=== PATIENT | male | born 1965 | race Caucasian/White ===

== ENCOUNTER 2017-03-09 08:21 | Day surgery (SDC) | payer MEDICARE, OTHER ==
[~2017-03-09] VITALS: Ht 188 cm; Wt 134.0 kg
[~2017-03-09 08:21] MED LIST: ALBU.5I NEB; APIX5TAB PO; BACL20TA TUBE; CARV3.125 PO; FLUT50SP EACH NARE; FURO40TA PO; GLIM2TAB PO; HUMALOG SQ; HYDR50TA15 PO; LACTCAP8 PO; LANTUS2P SQ; LORA10TA PO; MECL25CH CHEW; NYST500000 PO; ROSU40 PO; SCOP1PAT2 T-DERMAL; TRAM-492 PEG; VITA10007 PO; VITA500030 PEG; ZANT150T2 PO; ZOFR4TAB PO
[2017-03-09 08:45] VITALS: BP 143/75; PULSE 71; RESP 18; TEMP 96.9; O2SAT 96
[2017-03-09] MEDS ORDERED: CLAR10CA3 PO (08:56)
[2017-03-09] MEDS ORDERED: ASCO500T PO (08:56)
[2017-03-09] MEDS ORDERED: MECL1TAB42 (08:56)
[2017-03-09] MEDS ORDERED: CHOL5000 PO (08:56)
[2017-03-09] MEDS ORDERED: CRANPOW2 (08:56)
[2017-03-09] MEDS ORDERED: HYDR-3800 (08:56)
[2017-03-09] MEDS ORDERED: SODIUM CHLOR 0.9% 1000 ML INJ 1,000 ML IV SCH (09:00)
--- NOTE | 2017-03-09 10:44 | PD.RAD ---
Post Procedure Progress Note Pre Procedure Diagnosis: (1) Spastic quadriplegia Post Procedure Diagnosis: (1) Spastic quadriplegia Procedure Date: Mar 09, 2017 Supervising Radiologist: Senthil Santana Proceduralist/Assist: Miko Melton, RT(R), Samm Shah RT(R)() Estimated blood loss: 0 ml Anesthesia: Conscious Sedation Plan of Activity Patient to Unit: ROPU Patient Condition: Good See PACS Report for procedural detail/treatment Senthil Santana MD Mar 09, 2017 10:44
[2017-03-09 10:45] VITALS: BP 120/75; PULSE 74; RESP 20; TEMP 98.5; O2SAT 96
[2017-03-09] MEDS ORDERED: IOHEXOL 350 MG/ML 50 ML BTL (for RAD DIAG) G-TUBE ONE (11:15)
--- NOTE | 2017-03-09 11:51 | RADRPT ---
EXAM DATE/TIME: 03/09/2017 10:37 [facility] COMPARISON: CHANGE OF GJ-TUBE CATHETER, September 21, 2016, 11:54. INDICATIONS : Patient with history of an anoxic brain injury in need of exchange of transgastric tube. MEDICAL HISTORY : Hx of NM Anoxic brain injury CAD Afib Colitis Coccyx ulcer HTN Renal disease SURGICAL HISTORY : Hx of GJ tube placement Suprapubic cath Colonoscopy Tracheostomy Cardiac cath Seema Cardiac stent placement ENCOUNTER: Subsequent ACUITY: >1 year PAIN SCORE: 0/10 FLUORO TIME: 1.0 minutes IMAGE SERIES: CONTRAST: 15 cc Omnipaque (iohexol) 350 DEVICE(S): 1.) 22 [place] Transgastric tube PROCEDURE : 1. Fluoroscopically guided gastrojejunostomy tube exchange. 2. Conscious sedation with continuous EKG and oximetry monitoring. The risks, benefits and alternatives to the procedure were explained and verbal and written consent w as obtained. The site was prepped in sterile fashion. Full sterile technique was used, including ca p, mask, sterile gloves and gown and a large sterile sheet. Hand hygiene and 2% chlorhexidine and/or betadine/alcohol prep was utilized per protocol for cutaneous antisepsis. The skin and subcutaneous tissues were infiltrated with local anesthetic solution. With fluoroscopic guidance a guidewire was passed through the previous gastrojejunostomy tube and a f resh tube was placed over the guidewire. The balloon was inflated with appropriate volume of saline. Injection of positive contrast demonstrates good position of the gastric and jejunal lumens of the tube. Conscious sedation was performed with the prescribed dosages and duration as above in the presence of an independent trained radiology nurse to assist in the monitoring of the patient. EKG and oximetry remained stable throughout the procedure. The patient tolerated the procedure well and there were n o complications. The patient was sent to post anesthesia recovery in stable condition. CONCLUSION: Uncomplicated gastrojejunostomy tube exchange as above. Senthil Santana MD on March 09, 2017 at 11:49 Board Certified Radiologist. This report was verified electronically.
== END 2017-03-09 11:15 | disposition home or self-care (01) ==
LOC: HROP 08:21 → HRIP 08:23 → HROP 11:15
PROVIDERS: ATTEND Internal Medicine Gastroenterology
DX: Z43.4 Encounter for attention to other artificial openings of digestive tract (principal); G82.50 Quadriplegia, unspecified; I25.10 Atherosclerotic heart disease of native coronary artery without angina pectoris; I48.91 Unspecified atrial fibrillation; I10 Essential (primary) hypertension; I25.2 Old myocardial infarction; Z95.5 Presence of coronary angioplasty implant and graft
CPT/HCPCS: 49452; C1769; C1874; Q9967

== ENCOUNTER 2017-05-05 12:45 | Inpatient (IN) | payer MEDICARE, OTHER ==
[~2017-05-05] VITALS: Ht 188 cm; Wt 138.0 kg
[~2017-05-05 12:45] MED LIST changes: +ASCO500T PO; +CHOL5000 PO; +CLAR10CA3 PO; +CRANPOW2; +HYDR-3800; -HYDR50TA15 PO; -LORA10TA PO; +MECL1TAB42; -MECL25CH CHEW; -VITA10007 PO; -VITA500030 PEG
[2017-05-05 12:47] VITALS: BP 100/45; PULSE 74; RESP 20; TEMP 98.5; O2SAT 96
--- NOTE | 2017-05-05 12:58 | PD ---
Physical Exam Date Seen by Provider: May 05, 2017 Time Seen by Provider: 12:56 Narrative 52 yo male here for evaluation of PEG tube malfunction. Possibly clogged. Taking antibiotics at this time for congestion. Has had fevers since yesterday. Tube clogged today. Vitals are stable in triage. Awaiting bed placement. Data Data Last Documented VS Vital Signs Date Time Temp Pulse Resp B/P Pulse Ox O2 Delivery O2 Flow Rate FiO2 05/05/17 12:47 98.5 74 20 100/45 96 MDM Medical Record Reviewed: Yes Supervised Visit with [facility]: Golden Luna May 05, 2017 12:58
--- NOTE | 2017-05-05 13:48 | PD ---
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 For the past few months the patient has had a cough. The cough sounds wet but he is unable to brace any sputum. He was previously treated with Cipro however over the past week his cough is worsening. Yesterday he was started on doxycycline by his primary care physician Dr. Delgado. He spiked a fever yesterday as high as 101. Today his temperature was 99.8 at home. The also notes He has had some increased sediment in his urine bag. She did change his suprapubic catheter yesterday. In addition the reports that his GJ tube became clogged this morning. Specifically his G port is clogged but she reports that the J port is still working. She tried unclogging at home with jennifer antonio, warm water, for several hours but it persisted and this prompted evaluation. She has not noticed any new pressure ulcers. He has had slightly thicker stool consistencies which she attributes to him recently having an increasing his diuretic medications. No other complaints. PFSH Past Medical History Autoimmune Disease: No Blood Disorders: No Anxiety: Yes Heart Rhythm Problems: Yes (Hx of AF after stent placement) Cancer: No Cardiac Catheterization: Yes Cardiovascular Problems: Yes (stent) High Cholesterol: Yes Chest Pain: Yes Congestive Heart Failure: No Coronary Artery Disease: Yes Diabetes: Yes Patient Takes Glucophage: No Diminished Hearing: No Endocrine: Yes Gastrointestinal Disorders: Yes (Ulcerative colitis) GERD: Yes Genitourinary: Yes Hypertension: Yes Implanted Vascular Access Dvce: Yes Musculoskeletal: No Neurologic: Yes (ANOXIC BRAIN INJURY POST CODE) Psychiatric: No Reproductive: No Respiratory: Yes (Tracheostomy, REMOVED 12/18) Immunizations Current: Yes Myocardial Infarction: Yes Pneumonia: Yes Renal Failure: Yes Tetanus Vaccination: > 5 Years Influenza Vaccination: Yes Past Surgical History Abdominal Surgery: Yes (G-tube, COLOSTOMY) AICD: No Body Medical Devices: G-TUBE, Cardiac stent Cardiac Surgery: Yes (Heart Cath/Pericardial Window) Cholecystectomy: Yes Coronary Stent: Yes (STENT x 1) Joint Replacement: No Pacemaker: No Thoracic Surgery: Yes (Heart Cath/Pericardial Window) Tonsillectomy: Yes Other Surgery: Yes (gallbladder removed) Social History Alcohol Use: No Tobacco Use: No (1989) Substance Use: No Allergies-Medications (Allergen,Severity, Reaction): Coded Allergies: *MDRO Multi-Drug Resistant Organism (Verified Allergy, Unknown, 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 Reported Meds & Prescriptions Reported Meds & Active Scripts Active Baclofen 20 Mg Tab 20 Mg TUBE QID Reported Meclizine (Meclizine HCl) 25 Mg Tab 25 Mg PO TID PRN Potassium Chloride ER (Potassium Chloride) 20 Meq Tab 20 Meq PO DAILY Cranberry (Cranberry (Vaccinium Macrocarpon)) 1 Powd 1 Cap DAILY Meclizine 25 (Meclizine HCl) 25 Mg Tab TID Claritin (Loratadine) 10 Mg Cap 10 Mg PO DAILY Hydralazine HCl 50 Mg Tablet TID Vitamin D3 (Cholecalciferol) 5,000 Unit Cap 5,000 Units PO DAILY Ascorbic Acid 500 Mg Tab 1,000 Mg PO BID Zantac (Ranitidine HCl) 150 Mg Tab 150 Mg PO BID Scopolamine Patch 72 HR (Scopolamine) 1 Mg Patch 1 Patch T-DERMAL Q72H Probiotic (Lactobacillus Acidophilus) 1 Cap Cap 1 Cap PO TIDAC Albuterol Neb (Albuterol Sulfate) 2.5 Mg/0.5 Ml Neb 2.5 Mg NEB Q6HR NEB PRN Note: The Albuterol Sulfate Inhalation Solution is concentrated and must be diluted. Read complete instructions carefully before using. Fluticasone Nasal [place] 50 Mcg/Act Naspr 50 Mcg EACH NARE BID 50 mcg/spray Tramadol Hydrochloride (Tramadol HCl) 50 Mg Tab 50 Mg PEG PRN PRN Nystatin 500,000 Unit Tab 1,000,000 Units PO Q8H Zofran (Ondansetron HCl) 4 Mg Tab 4 Mg PO Q8HR PRN Crestor (Rosuvastatin Calcium) 40 Mg Tab 40 Mg PO DAILY Humalog Inj (Insulin Human Lispro) 1,000 Unit/10 Ml Vial 5-25 Units SQ ACHS Max dose at bedtime:( )units; sugars < 70,(0)units; sugars 150-199,(5)units; sugars 200-249,(10)units; sugars 250-299,(15)units; sugars 300-349,(20)units; sugars more than 349,(25)units. Lantus Inj (Insulin Glargine) 100 Unit/Ml Inj 74 Units SQ BID Glimepiride 2 Mg Tab 2 Mg PO DAILY Take with breakfast or first main meal Coreg (Carvedilol) 3.125 Mg Tab 3.125 Mg PO BID Furosemide 40 Mg Tab 60 Mg PO DAILY Eliquis (Apixaban) 5 Mg Tab 2.5 Mg PO BID Review of Systems Except as stated in HPI: all other systems reviewed are Neg Physical Exam Narrative GENERAL: Chronically ill-appearing male in no acute distress. SKIN: Warm and dry. HEAD: Atraumatic. Normocephalic. EYES: Pupils equal and round. No scleral icterus. No injection or drainage. ENT: No nasal bleeding or discharge. Mucous membranes pink and moist. NECK: Trachea midline. No JVD. CARDIOVASCULAR: Regular rate and rhythm. No murmur appreciated. RESPIRATORY: No accessory muscle use. Clear to auscultation. Breath sounds equal bilaterally. Difficult to auscultate secondary to body habitus. GASTROINTESTINAL: Abdomen soft, colostomy bag noted in the left lower quadrant, GJ tube noted in the upper portion of the abdomen. Suprapubic catheter in place. MUSCULOSKELETAL: Contracture of the extremities noted. 1+ lower extremity pitting edema bilaterally. NEUROLOGICAL: Contractures in the extremities. Baseline mental status per . Data Data Last Documented VS Vital Signs Date Time Temp Pulse Resp B/P Pulse Ox O2 Delivery O2 Flow Rate FiO2 05/05/17 13:18 74 20 95 Room Air 05/05/17 12:47 98.5 100/45 Orders Invasive Rad Dept Consult (05/05/17 ) Vascular Access Team Consult/P PRN (05/05/17 13:21) Vascular Poc Ultrasound (05/05/17 ) Complete Blood Count With Diff (05/05/17 13:24) Comprehensive Metabolic Panel (05/05/17 13:24) Lactic Acid Sepsis Protocol (05/05/17 13:24) Urinalysis - C+S If Indicated (05/05/17 13:24) Influenzae A/B Antigen (05/05/17 13:24) Blood Culture (05/05/17 13:24) Chest, Single Ap (05/05/17 13:24) Ecg Monitoring (05/05/17 13:24) Iv Access Insert/Monitor (05/05/17 13:24) Oximetry (05/05/17 13:24) Oxygen Administration (05/05/17 13:24) Sodium Chlor 0.9% 1000 Ml Inj (Ns 1000 M (05/05/17 14:19) Cefepime Inj (Maxipime Inj) (05/05/17 14:30) Azithromycin Inj (Zithromax Inj) (05/05/17 14:30) Urine Culture (05/05/17 14:06) Admit Order (Ed Use Only) (05/05/17 15:25) Labs Laboratory Tests Test 05/05/17 05/05/17 05/05/17 14:00 14:05 14:06 White Blood Count 9.5 TH/MM3 Red Blood Count 4.54 MIL/MM3 Hemoglobin 13.0 GM/DL Hematocrit 39.0 % Mean Corpuscular Volume 85.9 FL Mean Corpuscular Hemoglobin 28.7 PG Mean Corpuscular Hemoglobin 33.4 % Concent Red Cell Distribution Width 16.0 % Platelet Count 244 TH/MM3 Mean Platelet Volume 8.4 FL Neutrophils (%) (Auto) 70.4 % Lymphocytes (%) (Auto) 16.8 % Monocytes (%) (Auto) 11.5 % Eosinophils (%) (Auto) 0.7 % Basophils (%) (Auto) 0.6 % Neutrophils # (Auto) 6.7 TH/MM3 Lymphocytes # (Auto) 1.6 TH/MM3 Monocytes # (Auto) 1.1 TH/MM3 Eosinophils # (Auto) 0.1 TH/MM3 Basophils # (Auto) 0.1 TH/MM3 CBC Comment DIFF FINAL Differential Comment Sodium Level 136 MEQ/L Potassium Level 3.2 MEQ/L Chloride Level 96 MEQ/L Carbon Dioxide Level 34.7 MEQ/L Anion Gap 5 MEQ/L Blood Urea Nitrogen 21 MG/DL Creatinine 0.78 MG/DL Estimat Glomerular Filtration 104 ML/MIN Rate Random Glucose 162 MG/DL Calcium Level 9.1 MG/DL Total Bilirubin 0.7 MG/DL Aspartate Amino Transf 20 U/L (AST/SGOT) Alanine Aminotransferase 19 U/L (ALT/SGPT) Alkaline Phosphatase 70 U/L Total Protein 7.0 GM/DL Albumin 2.8 GM/DL Lactic Acid Level 1.9 mmol/L Urine Color YELLOW Urine Turbidity CLOUDY Urine pH 6.0 Urine Specific [place] 1.015 Urine Protein 30 mg/dL Urine Glucose (UA) NEG mg/dL Urine Ketones NEG mg/dL Urine Occult Blood SMALL Urine Nitrite NEG Urine Bilirubin NEG Urine Urobilinogen LESS THAN 2.0 MG/DL Urine Leukocyte Esterase LARGE Urine RBC 21 /hpf Urine WBC /hpf Urine WBC Clumps MANY Urine Bacteria MANY /hpf Urine Mucus FEW /lpf Microscopic Urinalysis Comment CATH-CULTURE IND MDM Medical Decision Making Medical Screen Exam Complete: Yes Emergency Medical Condition: Yes Medical Record Reviewed: Yes Differential Diagnosis Pneumonia, UTI, PEG tube infection, sepsis Narrative Course This is a 52-year-old male who has been suffering from a cough for the past few months, worse over the past week with fever 101 yesterday. He was started on doxycycline yesterday by his primary care physician. In addition the jeep part of his GJ tube has been clogged since this morning. Dr. Romero discussed with Dr. Schaefer radiologist to reports that they would be able to exchange the GJ tube in 2 days on Sunday, May 07 and in the meantime the J port can be used. History of fever in this patient is concerning. Plan is for basic lab work, chest x-ray, urinalysis, blood cultures. Chest x-ray reveals bibasilar infiltrate or atelectasis. Given the history of fever and cough, the patient will be treated for presumptive pneumonia with cefepime and azithromycin. His urinalysis also reveals innumerable WBCs bacteria, so this will be sent for culture. Diagnosis Primary Impression: PNA (pneumonia) Qualified Code: J18.9 - Pneumonia of both lower lobes due to infectious organism Additional Impressions: UTI (urinary tract infection) Qualified Code: T83.511A - Urinary tract infection associated with indwelling urethral catheter, initial encounter Feeding tube blocked Qualified Code: T85.598A - Feeding tube blocked, initial encounter Admitting Information Admitting Physician Requests: Admit Jonathon Cook May 05, 2017 13:48
--- NOTE | 2017-05-05 14:08 | RADRPT ---
EXAM DATE/TIME: 05/05/2017 13:33 [facility] COMPARISON: CHEST SINGLE AP, January 10, 2015, 8:47. INDICATIONS : Fever and Congestion MEDICAL HISTORY : Hypertension. History of [place], Anoxic brain injury, CAD, A-fib, Colitis, Coccyx ulcer, Renal dise ase SURGICAL HISTORY : Cholecystectomy. History of GJ tube placement, Suprapubic cath, Colonoscopy, Tracheostomy, Cardiac st ent placement ENCOUNTER: Subsequent ACUITY: 1 day PAIN SCORE: Non-responsive. LOCATION: Bilateral chest FINDINGS: There is a poor inspiratory result. The heart is enlarged. Bibasilar atelectasis and/or infiltrates are noted. CONCLUSION: 1. Bibasilar atelectasis and/or infiltrates. 2. Cardiomegaly. 3. Poor inspiratory result. Fernando Greer MD on May 05, 2017 at 14:03 Board Certified Radiologist. This report was verified electronically.
[2017-05-05 14:18] LABS: AUTOMATED NEUTROPHIL # 6.7 TH/MM3 (1.8-7.7); BASOPHIL # 0.1 TH/MM3 (0-0.2); BASOPHIL % 0.6 % (0.0-2.0); EOSINOPHIL # 0.1 TH/MM3 (0-0.4); EOSINOPHIL % 0.7 % (0.0-4.0); HEMO FLAGS DIFF FINAL; LYMPH % 16.8 % (9.0-44.0); LYMPHOCYTE # 1.6 TH/MM3 (1.0-4.8); MEAN CELL VOLUME 85.9 FL (80.0-100.0); MEAN CORPUSCULAR HEMOGLOBIN 28.7 PG (27.0-34.0); MEAN CORPUSCULAR HGB CONC 33.4 % (32.0-36.0); MONO % 11.5 % (0.0-8.0); NEUT % 70.4 % (16.0-70.0); PLATELET COUNT 244 TH/MM3 (150-450); RED BLOOD COUNT 4.54 MIL/MM3 (4.50-5.90); WHITE BLOOD COUNT 9.5 TH/MM3 (4.0-11.0)
[2017-05-05] MEDS ORDERED: SODIUM CHLOR 0.9% 1000 ML INJ 1,000 ML IV SCH (14:19)
[2017-05-05] MEDS ORDERED: AZITHROMYCIN INJ 500 MG in SODIUM CHLOR 0.9% 250 ML INJ 250 ML IV ONE (14:30)
[2017-05-05] MEDS ORDERED: CEFEPIME INJ 2,000 MG in SODIUM CHLORIDE 0.9% INJ 100 ML IV ONE (14:30)
[2017-05-05] MEDS ORDERED: MECL-62 PO (14:37)
[2017-05-05] MEDS ORDERED: POTA-163 PO (14:37)
[2017-05-05 14:40] LABS: ALT (GPT) 19 U/L (12-78)
[2017-05-05 14:41] LABS: BACTERIA, URINE MANY /hpf; BLOOD, URINE SMALL (NEG); COMMENT (UR) CATH-CULTURE IND; CULTURE IF INDICATED CATH CULTURE IND; GLUCOSE,URINE NEG (NEG); KETONE, URINE NEG (NEG); MUCUS URINE FEW /lpf (OCC); NITRITE,URINE NEG (NEG); URINE COLOR YELLOW (YELLW/STRAW)
[2017-05-05 14:44] LABS: ALKALINE PHOSPHATASE 70 U/L (45-117); ANION GAP 5 MEQ/L (5-15); AST (GOT) 20 U/L (15-37); BICARBONATE 34.7 MEQ/L (21.0-32.0); BLOOD UREA NITROGEN 21 MG/DL (7-18); CHLORIDE 96 MEQ/L (98-107); GLOMERULAR FILTRATION RATE 104 ML/MIN (>89); POTASSIUM 3.2 MEQ/L (3.5-5.1); SODIUM (NA) 136 MEQ/L (136-145); TOTAL BILIRUBIN ADULT 0.7 MG/DL (0.2-1.0)
[2017-05-05] MEDS ORDERED: ACETAMINOPHEN 325 MG TAB PO PRN (15:30)
[2017-05-05] MEDS ORDERED: SODIUM CHLORIDE 0.9% FLUSH 10 ML FLUSH IV FLUSH PRN (15:30)
[2017-05-05] MEDS ORDERED: ONDANSETRON HCL 4 MG/2 ML VIAL IVP PRN (15:30)
[2017-05-05] MEDS ORDERED: NALOXONE HCL 0.4 MG/ML AMP IV PRN (15:30)
[2017-05-05] MEDS: HEPARIN SODIUM - SQ 10,000 UNITS/ML VIAL SQ SCH (16:10)
[2017-05-05 16:29] VITALS: BP 143/61; PULSE 81; RESP 16; O2SAT 96
[2017-05-05 16:38] VITALS: RESP 16; O2SAT 96
[2017-05-05] MEDS ORDERED: MECLIZINE HCL 25 MG TAB PO PRN (17:30)
[2017-05-05 18:05] VITALS: BP 118/68; PULSE 80; RESP 18; TEMP 98.8; O2SAT 95
[2017-05-05] MEDS ORDERED: POTASSIUM CHLORIDE 20 MEQ PWD PACKET PO ONE (18:15)
[2017-05-05] MEDS ORDERED: DEXTROSE 50% IN WATER 50 ML VIAL(D50) IV PRN (18:30)
[2017-05-05] MEDS ORDERED: GLUCAGON 1 MG/ML VIAL OTHER PRN (18:30)
[2017-05-05] MEDS: RESP: ALBUTEROL 2.5 MG/IPRATROPIUM 0.5 MG NEB (SCH) NEB ×2 (19:42→23:57)
[2017-05-05 19:45] VITALS: O2SAT 94
[2017-05-05 20:00] VITALS: BP 133/65; PULSE 75; RESP 20; TEMP 97.4; O2SAT 94
[2017-05-05] MEDS: BACLOFEN 20 MG TAB J-TUBE SCH ×2 (21:00→22:29)
[2017-05-05] MEDS: APIXABAN 2.5 MG TABLET PO SCH (22:29)
[2017-05-05] MEDS: FAMOTIDINE 20 MG TAB PO SCH (22:30)
[2017-05-05] MEDS: CARVEDILOL 3.125 MG TAB PO SCH (22:30)
[2017-05-05] MEDS: SCOPOLAMINE 1.5 MG PATCH T-DERMAL SCH (22:31)
[2017-05-05] MEDS: SODIUM CHLORIDE 0.9% FLUSH 10 ML FLUSH IV FLUSH SCH (22:32)
[2017-05-05] MEDS: CEFEPIME INJ 1,000 MG in SODIUM CHLORIDE 0.9% INJ 100 ML IV SCH (22:32)
[2017-05-05] MEDS: INSULIN ASPART SUPPLEMENTAL SCALE SQ SCH (22:47)
[2017-05-06] VITALS (10 sets, daily range): BP systolic 93–143; BP diastolic 51–88; PULSE 65–99; RESP 18–21; TEMP 96.3–99.2; O2SAT 91–100
[2017-05-06] MEDS: HEPARIN SODIUM - SQ 10,000 UNITS/ML VIAL SQ SCH ×3 (04:00→23:00)
[2017-05-06] MEDS: RESP: ALBUTEROL 2.5 MG/IPRATROPIUM 0.5 MG NEB (SCH) NEB ×5 (04:30→20:02)
[2017-05-06] MEDS: CEFEPIME INJ 1,000 MG in SODIUM CHLORIDE 0.9% INJ 100 ML IV SCH ×3 (05:14→21:47)
[2017-05-06] MEDS: INSULIN ASPART SUPPLEMENTAL SCALE SQ SCH ×4 (05:19→22:08)
[2017-05-06 06:49] LABS: AUTOMATED NEUTROPHIL # 5.2 TH/MM3 (1.8-7.7); BASOPHIL % 0.6 % (0.0-2.0); EOSINOPHIL # 0.2 TH/MM3 (0-0.4); EOSINOPHIL % 2.4 % (0.0-4.0); HEMATOCRIT 37.2 % (39.0-51.0); HEMO FLAGS DIFF FINAL; LYMPH % 21.6 % (9.0-44.0); LYMPHOCYTE # 1.7 TH/MM3 (1.0-4.8); MEAN CELL VOLUME 86.6 FL (80.0-100.0); MEAN CORPUSCULAR HEMOGLOBIN 28.6 PG (27.0-34.0); MEAN CORPUSCULAR HGB CONC 33.1 % (32.0-36.0); MONO % 11.1 % (0.0-8.0); NEUT % 64.3 % (16.0-70.0); PLATELET COUNT 208 TH/MM3 (150-450); RED CELL DISTRIBUTION WIDTH 16.1 % (11.6-17.2); WHITE BLOOD COUNT 8.1 TH/MM3 (4.0-11.0)
[2017-05-06 07:05] LABS: BICARBONATE 29.2 MEQ/L (21.0-32.0); POTASSIUM 3.1 MEQ/L (3.5-5.1)
[2017-05-06] MEDS: CARVEDILOL 3.125 MG TAB PO SCH ×2 (07:31→21:00)
[2017-05-06] MEDS: FAMOTIDINE 20 MG TAB PO SCH ×2 (07:31→21:48)
[2017-05-06] MEDS: APIXABAN 2.5 MG TABLET PO SCH ×2 (07:31→16:27)
[2017-05-06] MEDS: FUROSEMIDE 20 MG TAB PO SCH (07:31)
[2017-05-06] MEDS: POTASSIUM CHLORIDE 20 MEQ CONTROLLED RELEASE TAB PO SCH (07:32)
[2017-05-06] MEDS: GLIMEPIRIDE 2 MG TAB PO SCH (07:32)
[2017-05-06] MEDS: BACLOFEN 20 MG TAB J-TUBE SCH ×4 (07:32→21:48)
[2017-05-06] MEDS: SODIUM CHLORIDE 0.9% FLUSH 10 ML FLUSH IV FLUSH SCH ×2 (07:32→21:48)
[2017-05-06] MEDS: LORATADINE 10 MG TAB PO SCH (07:32)
[2017-05-06] MEDS: AZITHROMYCIN INJ 500 MG in SODIUM CHLOR 0.9% 250 ML INJ 250 ML IV SCH (13:31)
[2017-05-06] MEDS ORDERED: POTASSIUM CHLORIDE 20 MEQ PWD PACKET PO ONE (14:00)
--- NOTE | 2017-05-06 16:14 | HHI.PR ---
Subjective Subjective Remarks Nonverbal in room with him No acute shortness of breath noted (Fay Haddad) Review of Systems Constitutional Constitutional: Weakness Constitutional Remarks Unable to assess nonverbal (Fay Haddad) Vitals/Results Intake & Output 05/05/17 05/05/17 05/06/17 15:00 23:00 07:00 Output Total 300 ml 300 ml Balance -300 ml -300 ml Output Urine Total 300 ml 300 ml Vital Signs Vital Signs Date Time Temp Pulse Resp B/P Pulse Ox O2 Delivery O2 Flow Rate FiO2 05/06/17 12:35 96.8 82 18 111/63 96 05/06/17 08:37 97.6 88 18 130/75 92 05/06/17 08:08 92 21 05/06/17 04:00 96.9 80 20 125/59 98 05/06/17 00:00 99.2 99 21 102/60 91 05/05/17 20:00 97.4 75 20 133/65 94 05/05/17 19:45 94 05/05/17 18:05 98.8 80 18 118/68 95 05/05/17 16:38 16 96 Room Air 05/05/17 16:29 81 16 143/61 96 Room Air (Fay Haddad) CBC/BMP: 05/06/17 0553 05/06/17 0553 Lab Results Laboratory Tests Test 05/06/17 05/06/17 05:00 05:53 Nasal Screen MRSA (PCR) MRSA DETECTED White Blood Count 8.1 TH/MM3 Red Blood Count 4.30 MIL/MM3 Hemoglobin 12.3 GM/DL Hematocrit 37.2 % Mean Corpuscular Volume 86.6 FL Mean Corpuscular Hemoglobin 28.6 PG Mean Corpuscular Hemoglobin 33.1 % Concent Red Cell Distribution Width 16.1 % Platelet Count 208 TH/MM3 Mean Platelet Volume 8.6 FL Neutrophils (%) (Auto) 64.3 % Lymphocytes (%) (Auto) 21.6 % Monocytes (%) (Auto) 11.1 % Eosinophils (%) (Auto) 2.4 % Basophils (%) (Auto) 0.6 % Neutrophils # (Auto) 5.2 TH/MM3 Lymphocytes # (Auto) 1.7 TH/MM3 Monocytes # (Auto) 0.9 TH/MM3 Eosinophils # (Auto) 0.2 TH/MM3 Basophils # (Auto) 0.0 TH/MM3 CBC Comment DIFF FINAL Differential Comment Sodium Level 139 MEQ/L Potassium Level 3.1 MEQ/L Chloride Level 100 MEQ/L Carbon Dioxide Level 29.2 MEQ/L Anion Gap 10 MEQ/L Blood Urea Nitrogen 19 MG/DL Creatinine 0.67 MG/DL Estimat Glomerular Filtration 124 ML/MIN Rate Random Glucose 195 MG/DL Calcium Level 8.5 MG/DL Imaging Remarks Last Impressions Chest X-Ray 05/05/17 1324 Signed Impressions: Service Date/Time: Friday, May 05, 2017 13:33 - CONCLUSION: 1. Bibasilar atelectasis and/or infiltrates. 2. Cardiomegaly. 3. Poor inspiratory result. Fernando Greer MD Current Medications Administered Medications Medications (Trade) Dose Ordered Sig/Oz Route PRN Reason Start Time Stop Time Status Last Admin Dose Admin Sodium Chloride (NS Flush) 2 ml BID IV FLUSH 05/05/17 21:00 05/06/17 07:32 Heparin Sodium (Porcine) 5000 units 5,000 units Q12H SQ 05/05/17 16:00 05/05/17 16:10 Cefepime HCl 1000 mg/Sodium Chloride 100 ml @ 200 mls/hr Q8H IV 05/05/17 22:00 05/06/17 12:49 Azithromycin/ Sodium Chloride (Zithromax Inj/ NS 250 ml Inj) 250 ml @ 250 mls/hr Q24H IV 05/06/17 15:00 05/06/17 13:31 Apixaban (Eliquis) 2.5 mg BID PO 05/05/17 21:00 05/06/17 07:31 Baclofen (Lioresal) 20 mg QID J-TUBE 05/05/17 18:00 05/06/17 12:49 Carvedilol (Coreg) 3.125 mg BID PO 05/05/17 21:00 05/06/17 07:31 Furosemide (Lasix) 60 mg DAILY PO 05/06/17 09:00 05/06/17 07:31 Glimepiride (Amaryl) 2 mg DAILY PO 05/06/17 09:00 05/06/17 07:32 Loratadine (Claritin) 10 mg DAILY PO 05/06/17 09:00 05/06/17 07:32 Potassium Chloride (KCl) 20 meq DAILY PO 05/06/17 09:00 05/06/17 07:32 Scopolamine (Transderm-Scop 1.5 Mg Patch.72 Hr) 1 patch Q72H T-DERMAL 05/05/17 20:00 05/05/17 22:31 Famotidine (Pepcid) 20 mg BID PO 05/05/17 21:00 05/06/17 07:31 (Fay Haddad) Physical Exam General General Appearance: Obese (Fay Haddad) Ears & Nose Ears & Nose Exam: Nasal Mucosa [place] (pale) (Fay Haddad) Throat Throat Exam: Oral Mucosa [place] & Moist (Fay Haddad) Neck Neck Exam: Trachea Midline (Fay Haddad) Pulmonary Resp Exam: Rhonchi (occasional), Decreased Bases, Diminished Breath Sounds ( Fay Haddad) Cardiology CV Exam: Regular CV Remarks Murmur (Fay Haddad) Gastrointestinal/Abdomen GI Exam: Soft, Bowel Sounds Present GI Remarks JG tube, J is the only function and port (Fay Haddad) Genitourinary Remarks Black catheter (Fay Haddad) Musculoskeletal MS Exam: Atrophy, Unable to Ambulate (bed ridden) MS Remarks Contractures hands (Fay Haddad) Integumentary Skin Exam: Warm, Dry, Intact Skin Remarks Old healed sacral wound (Fay Haddad) Neurologic Neuro Remarks Opens eyes to voice, nonverbal, occasional grimace to painful stimuli (Fay Haddad) Assessment/Plan Assessment/Plan Vital signs normal trends today Labs reviewed hypokalemia, gram-negative bacteria in urine, anemia stable at 12.3 Bilateral pneumonia, duo nebs, oxygen, antibiotic therapy, specialty mattress, turn, secretion control, labs as warranted WBC count normal, no fever today, hydration Hypokalemia, patient on maintenance daily dose, 40 mEq given extra today, labs in the morning UTI, probably acute on chronic with chronic Black catheter, changed out before night before admission IV antibiotics History of traumatic brain injury, patient does open eyes to voice, grimaces and makes grunting sounds to painful stimuli, specialty mattress for history of sacral wound and 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 Nothing by mouth at midnight Discussed with Discussed with Dr. ordoñez, seen on her behalf Discussed with nurse (Fay Haddad) Assessment/Plan patient seen and examined agree with above assessment and plan MRSA nasal screen +, will treat with Mupirocin ointment for 5 days monitor urine culture continue i/v antibiotics discussed with patient's at bedside and nursing staff discussed with Fay SOFIA (Yennifer Ordoñez MD) Fay Haddad May 06, 2017 16:14 Yennifer Ordoñez MD May 06, 2017 16:54
[2017-05-06] MEDS: ONDANSETRON ODT 4 MG TAB PO PRN ×2 (16:57→23:59)
[2017-05-06] MEDS: MUPIROCIN 2% OINT 1 APPLIC/GM SYR EACH NARE SCH (21:48)
[2017-05-06] MEDS: DEXT 5%-NACL 0.9% 1000 ML INJ 1,000 ML IV SCH (23:59)
[2017-05-07] VITALS (7 sets, daily range): BP systolic 94–120; BP diastolic 46–68; PULSE 68–82; RESP 17–20; TEMP 97.7–98.5; O2SAT 92–100
[2017-05-07] MEDS: RESP: ALBUTEROL 2.5 MG/IPRATROPIUM 0.5 MG NEB (SCH) NEB ×7 (00:30→23:14)
[2017-05-07] MEDS: CEFEPIME INJ 1,000 MG in SODIUM CHLORIDE 0.9% INJ 100 ML IV SCH ×3 (05:24→23:09)
[2017-05-07] MEDS: INSULIN ASPART SUPPLEMENTAL SCALE SQ SCH ×4 (05:43→23:15)
[2017-05-07 07:31] LABS: BICARBONATE 32.5 MEQ/L (21.0-32.0); POTASSIUM 3.2 MEQ/L (3.5-5.1)
--- NOTE | 2017-05-07 08:10 | MH ---
cc: NABILA WHITE MD DATE OF ADMISSION: 05/05/2017 DATE OF 1965 CHIEF COMPLAINT Fever, cough. Travel in the last 30 days none. HISTORY OF PRESENT ILLNESS This is an unfortunate 52-year-old white male who had an acute anoxic brain injury in 2011. The patient currently is being cared for per his at home. He has a G-J tube in place. The G aspect of the tube is not functioning, The J is currently still functioning. According to the record and the , she has noted cough for the past few weeks. The patient was initially treated with Cipro then placed on doxycycline, but the cough has continued. The patient did reach a high fever yesterday of 101. The states that the cough sounds wet, but he is unable to cough up any sputum. The patient's eyes are open. He does appear to be awake. It is questionable how much he understands, but he does make noises and respond to painful stimuli. To 's knowledge, the patient has had no chest pain. No other shortness of breath. He has been treated for a UTI. He has a chronic suprapubic catheter which was changed last night per her. He is followed routinely by his physicians, PCP and neurology as warranted. He has a feeding tube. He has the J-tube which usually has Glucerna at 60 mL an hour. He has multiple comorbidities. This is the second time the patient has had a pneumonia bout in five years since his brain injury. PAST MEDICAL HISTORY 1. History of anxiety 2. History of atrial fibrillation after stent placement 3. OR with cardiac stents 4. Ulcerative colitis 5. Coronary artery disease, 6. Hyperlipidemia, 7. Obesity, morbid 8. His anoxic brain injury with post a cardiac arrest. 9. Tracheostomy that was removed and 12/18. 10. Renal failure 11. Pneumonia, one other bout in five years. 12. MRSA to a wound on his buttock in 2012 which is healed. VRE to a sacral wound in 2012 which is now healed. PAST SURGICAL HISTORY 1. G tube 2. Colostomy 3. J-tube 4. Cardiac stent per cardiac cath with cardiac window. 5. Cholecystectomy ALLERGIES MDRO ULTIRESISTANT DRUGS SOCIAL HISTORY The patient currently is , lives at home with his who is his chief groundskeeper. 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 Tobacco abuse - quit in 1989. No alcohol. No illicit drug use. REVIEW OF SYSTEMS Unable to obtain any information from the patient. is his groundskeeper and gives all of his information. She is very attentive to him. PHYSICAL EXAMINATION VITAL SIGNS: Temperature is 98.8 tympanic, pulse of 80, respirations 18, blood pressure 118/68, has been as high as 143/61 and has been as low as 100/45. O2 sat 95 currently on room air. GENERAL: Morbidly obese white male looks to be stated age. He is currently in a [place] chair and has been placed in a bed. He does have contractures. Eyes are open. He does respond with some groaning and grunting to painful stimuli and possible some verbal communication from his . SKIN: Warm and dry. He has a healed sacral ulcer. HEENT: Normocephalic. Mucous membranes are moist. NECK: Thick, short but supple. CARDIOVASCULAR: S1-S2, rate is controlled. He has no pedal edema. EXTREMITIES: Warm. RESPIRATORY: Low volumes. Breath sounds are diminished bilateral, especially in both bases, but no active wheezing. ABDOMEN: Soft. Colostomy bag in the left lower quadrant. G-J tube is noted in the upper portion of his abdomen, suprapubic catheter in place. MUSCULOSKELETAL: Contractures noted bilateral all four extremities. NEUROLOGIC: The patient does grunt or groan to painful stimuli, but does not speak and does not follow general commands. PSYCHIATRIC: Mood appropriate. LABORATORY DATA WBC count 9.5, RBC 4.54, hemoglobin 13, hematocrit 39, platelet count 244, neutrophil count 70.4, lymphocyte count 11.5. Chemistry - sodium 136, potassium 3.2, chloride 96, carbon dioxide 34.7, BUN 21, creatinine 0.78, lactic acid 1.9, random glucose 162, albumin 2.8. Urine is yellow, cloudy, pH is 6. Specific gravity 1.015. Protein is 30, negative on glucose, ketones, nitrites, bilirubin is large amount of leukocyte esterase. Urobilinogen less than two, small amount of occult blood. Culture is indicated and pending along with blood cultures. He is negative on his influenza A and B. IMAGING STUDIES Chest x-ray - bibasilar atelectasis and/or infiltrates, cardiomegaly and poor respiratory effort. ASSESSMENT/PLAN 1. Pneumonia bilateral, community acquired 2. Diabetes type 2 3. G-J tube with malfunction of the G. 4. Pleural effusion right side 5. Anoxic brain injury with anoxic encephalopathy, communication impairment 6. History of spastic quadriplegia 7. History of cardiac arrest 8. Acute kidney injury with mild dehydration Our plan is to admit. We will monitor him with labs, O2 per nasal cannula if needed, Duo-nebs q 4. He has currently been placed on azithromycin and cefepime given in the emergency room and we will continue. He is inpatient certification. Heparin subcu for DVT prophylaxis was initiated but patient's meds have been reconciled and he is currently now on Eliquis. The patient will be given his Lasix, Amaryl, Claritin, KCl, Eliquis, Coreg, KCl powder, Antivert through the J tube for now. IR will replace the tube on Sunday so he will have functioning G and J. We will start him on Glucerna 1.5 at 60 mL an hour. We will give him 160 mL of water every two hours. The patient was usually on 240 every four, but we are going to increase water due to some mild acute kidney injury and dehydration. Cardiomegaly - medication and medical management. Code status was discussed in detail with the , charge nurse present. She states she does want full aggressive care to treat his medical dilemmas, but if his heart stops or he stops breathing, she does not want him resuscitated. He will be DNR, DNI but full aggressive care otherwise. She understands that if the patient has any special procedures or surgery in the future, he is full code, full aggressive care for that period of time but other than that DNR/DNI. We will follow. Dictated by KIMBERLYN Palma MD PAULETTE Katz/ /6:09 PM /8:06 AM
[2017-05-07] MEDS: FAMOTIDINE 20 MG TAB PO SCH ×2 (09:00→23:12)
[2017-05-07] MEDS: APIXABAN 2.5 MG TABLET PO SCH ×2 (09:00→23:12)
[2017-05-07] MEDS: BACLOFEN 20 MG TAB J-TUBE SCH ×4 (09:00→23:12)
[2017-05-07] MEDS: CARVEDILOL 3.125 MG TAB PO SCH ×2 (09:00→23:12)
[2017-05-07] MEDS: POTASSIUM CHLORIDE 20 MEQ CONTROLLED RELEASE TAB PO SCH (09:00)
[2017-05-07] MEDS: MUPIROCIN 2% OINT 1 APPLIC/GM SYR EACH NARE SCH ×2 (09:00→23:11)
[2017-05-07] MEDS: SODIUM CHLORIDE 0.9% FLUSH 10 ML FLUSH IV FLUSH SCH ×2 (09:00→23:12)
--- NOTE | 2017-05-07 09:12 | HHI.PR ---
Subjective Subjective Remarks Nonverbal History of anoxic brain injury Unable to obtain ROS Review of Systems Constitutional Constitutional Remarks Unable to obtain ROS Vitals/Results Intake & Output 05/06/17 05/06/17 05/07/17 14:59 22:59 06:59 Intake Total 0 ml 1020 ml Output Total 800 ml 450 ml 350 ml Balance -800 ml -450 ml 670 ml Intake Oral 0 ml 0 ml IV Total 340 ml Tube Feeding 360 ml Other 320 ml Output Urine Total 800 ml 450 ml 350 ml # Bowel Movements 0 Vital Signs Vital Signs Date Time Temp Pulse Resp B/P Pulse Ox O2 Delivery O2 Flow Rate FiO2 05/07/17 08:42 98.4 82 19 120/59 94 05/07/17 08:06 92 21 05/07/17 04:30 98.2 68 19 106/51 99 05/07/17 00:31 72 94/46 05/06/17 23:51 98.1 65 19 143/87 94 05/06/17 21:45 73 97/51 05/06/17 20:03 94 21 05/06/17 20:00 98.9 72 19 97/67 94 05/06/17 16:00 97.2 72 18 93/55 100 94/54 113/66 05/06/17 12:35 96.8 82 18 111/63 96 CBC/BMP: 05/06/17 0553 05/07/17 0600 Lab Results Laboratory Tests Test 05/07/17 06:00 Sodium Level 140 MEQ/L Potassium Level 3.2 MEQ/L Chloride Level 101 MEQ/L Carbon Dioxide Level 32.5 MEQ/L Anion Gap 7 MEQ/L Blood Urea Nitrogen 14 MG/DL Creatinine 0.55 MG/DL Estimat Glomerular Filtration 155 ML/MIN Rate Random Glucose 173 MG/DL Calcium Level 8.7 MG/DL Physical Exam General General Appearance: Well Developed, No Acute Distress, Obese Ears & Nose Ears & Nose Exam: Nasal Mucosa [place] Throat Throat Exam: Oral Mucosa [place] & Moist Neck Neck Exam: Trachea Midline Pulmonary Resp Exam: Decreased Bases, Diminished Breath Sounds, Poor Inspiratory Effort Cardiology CV Exam: Regular Gastrointestinal/Abdomen GI Exam: Soft, Non-Tender, Bowel Sounds Present, Non-Distended GI Remarks Ostomy in place Suprapubic catheter GJ tube Genitourinary Remarks Suprapubic catheter Musculoskeletal MS Exam: Atrophy, Spasticity, Unable to Ambulate Integumentary Skin Exam: Warm, Dry, Intact Neurologic Neuro Remarks Anoxic brain injury, nonverbal, not following commands VTE Prophylaxis VTE Remarks Eliquis Assessment/Plan Problem List: (1) Malfunction of gastrostomy tube (2) PNA (pneumonia) (3) Diabetes 1.5, managed as type 2 (4) UTI (urinary tract infection) (5) CAD (coronary artery disease) (6) Spastic quadriplegia (7) Impaired cognition (8) Anoxic encephalopathy (9) H/O cardiac arrest (10) HX [place] Assessment/Plan Continue with antibiotics for pneumonia Duo nebs as needed Follow cultures Urine culture positive for GNR and group D enterococcus Has chronic suprapubic catheter, was changed 3 days ago Multifunctional GJ tube Continue nothing by mouth IV fluids Going to IR today for GJ tube replacement Dietary consult for tube feeding Continue with Accu-Cheks before meals and at bedtime with insulin therapy Consult wound care nurse for pressure ulcer management MRSA nasal screen + continue with Mupirocin ointment for 5 days Continue with home medications Case management for discharge planning, hopefully home in 1-2 days DNR status Replace K Labs in am Discussed with RN Discussed with Dr. Palmer This patient was seen by myself and Dr. Palmer, this note is written on his behalf Problem Qualifiers (1) PNA (pneumonia): Qualified Code: J18.9 - Pneumonia of both lower lobes due to infectious organism (2) UTI (urinary tract infection): Qualified Code: T83.511A - Urinary tract infection associated with indwelling urethral catheter, initial encounter (3) CAD (coronary artery disease): Qualified Code: I25.10 - Coronary artery disease involving [place] coronary artery of [place] heart without angina pectoris Katherine Riojas [facility] May 07, 2017 09:12
[2017-05-07] MEDS ORDERED: POTASSIUM CHLOR 20 MEQ PREMIX 100 ML IV ONE (09:15)
--- NOTE | 2017-05-07 14:58 | PD.RAD ---
Post Procedure Progress Note Pre Procedure Diagnosis: (1) Feeding tube blocked Post Procedure Diagnosis: (1) Feeding tube blocked Procedure Date: May 07, 2017 Supervising Radiologist: Luis Bey JR Proceduralist/Assist: RT Cooper(R), RT Imer(R) Anesthesia: Other Plan of Activity Patient to Unit: Nursing Unit Patient Condition: Good See PACS Report for procedural detail/treatment Feeding Tube Gastro/Jejunostomy Replacement [place]: 22 Findings: Occluded GJ tube. Replaced with new tube. In good position. OK to use. Jr. Sotero,Luis [place] MD May 07, 2017 14:58
[2017-05-07] MEDS ORDERED: IOHEXOL 350 MG/ML 50 ML BTL (for RAD DIAG) G-TUBE ONE (15:11)
--- NOTE | 2017-05-07 15:40 | RADRPT ---
EXAM DATE/TIME: 05/07/2017 14:30 [place] COMPARISON: No previous studies available for comparison. INDICATIONS : Patient with history of anoxic brain injury in need of GJ tube exchange. The gastric lumen of the tub e is occluded. MEDICAL HISTORY : CAD, A-Fib, MD, Colitis, HTN, Renal failure, Diabetes, HLD, CHF, MRSA, Anoxic brain injury post cardi ac arrest SURGICAL HISTORY : GJ tube placement, Colostomy, Cardiac stents, Cholecystectomy, Tracheostomy, Suprapubic tube ENCOUNTER: Subsequent ACUITY: >1 year PAIN SCORE: 0/10 FLUORO TIME: 1.5 minutes IMAGE SERIES: 2 CONTRAST: 20 cc Omnipaque (iohexol) 350 DEVICE(S): 1.) 22 [place] Transgastric tube PROCEDURE : 1. Fluoroscopically guided gastrojejunostomy tube exchange. 2. Conscious sedation with continuous EKG and oximetry monitoring. The risks, benefits and alternatives to the procedure were explained and verbal and written consent w as obtained. The site was prepped in sterile fashion. Full sterile technique was used, including ca p, mask, sterile gloves and gown and a large sterile sheet. Hand hygiene and 2% chlorhexidine and/or betadine/alcohol prep was utilized per protocol for cutaneous antisepsis. The skin and subcutaneous tissues were infiltrated with local anesthetic solution. With fluoroscopic guidance a guidewire was passed through the previous gastrojejunostomy tube and a f resh tube was placed over the guidewire. The balloon was inflated with appropriate volume of saline. Injection of positive contrast demonstrates good position of the gastric and jejunal lumens of the tube. Conscious sedation was performed with the prescribed dosages and duration as above in the presence of an independent trained radiology nurse to assist in the monitoring of the patient. EKG and oximetry remained stable throughout the procedure. The patient tolerated the procedure well and there were n o complications. The patient was sent to post anesthesia recovery in stable condition. CONCLUSION: Uncomplicated gastrojejunostomy tube exchange as above. Luis Bey Jr., MD on May 07, 2017 at 15:37 Board Certified Radiologist. This report was verified electronically.
[2017-05-07] MEDS: HEPARIN SODIUM - SQ 10,000 UNITS/ML VIAL SQ SCH (16:00)
[2017-05-07] MEDS: AZITHROMYCIN INJ 500 MG in SODIUM CHLOR 0.9% 250 ML INJ 250 ML IV SCH (17:20)
--- NOTE | 2017-05-07 17:55 | PD.WCN.NOT ---
Wound Consult Description: Intact scar tissue to sacral area Communicated with: [facility] [place] Recommendation: Please cleanse buttock and sacral area gently with soap and water and apply moisture barrier cream BID and PRN. Please continue to turn patient every 2 hours and PRN for comfort. Additional Information: Patient seen on for evaluation of possible coccyx pressure injury per nursing documentation. Patient turned to L side with assistance of family member and show card writer. 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 No open areas noted on buttocks, sacral, or coccyx. Marlyn Ramirez [facility] May 07, 2017 17:55
[2017-05-07] MEDS: KETOROLAC TROMETHAMINE 30 MG/ML (IVP) VIAL IV PUSH PRN (19:01)
[2017-05-07] MEDS: ONDANSETRON ODT 4 MG TAB PO PRN (19:11)
[2017-05-07] MEDS: FUROSEMIDE 20 MG TAB PO SCH (19:11)
[2017-05-07] MEDS: GLIMEPIRIDE 2 MG TAB PO SCH (19:11)
[2017-05-07] MEDS: LORATADINE 10 MG TAB PO SCH (19:11)
[2017-05-07] MEDS: DEXT 5%-NACL 0.9% 1000 ML INJ 1,000 ML IV SCH (23:26)
[2017-05-08] VITALS (9 sets, daily range): BP systolic 99–135; BP diastolic 56–74; PULSE 62–106; RESP 17–18; TEMP 97.9–99.3; O2SAT 92–97
[2017-05-08] MEDS: RESP: ALBUTEROL 2.5 MG/IPRATROPIUM 0.5 MG NEB (SCH) NEB ×6 (03:19→23:51)
[2017-05-08] MEDS: KETOROLAC TROMETHAMINE 30 MG/ML (IVP) VIAL IV PUSH PRN ×2 (04:46→16:47)
[2017-05-08] MEDS: CEFEPIME INJ 1,000 MG in SODIUM CHLORIDE 0.9% INJ 100 ML IV SCH ×3 (04:47→22:21)
[2017-05-08] MEDS: HEPARIN SODIUM - SQ 10,000 UNITS/ML VIAL SQ SCH ×2 (04:47→16:42)
[2017-05-08] MEDS: ONDANSETRON ODT 4 MG TAB PO PRN ×2 (04:56→17:58)
[2017-05-08] MEDS: INSULIN ASPART SUPPLEMENTAL SCALE SQ SCH ×4 (06:11→22:41)
[2017-05-08 08:05] LABS: HEMATOCRIT 35.3 % (39.0-51.0); MEAN CORPUSCULAR HEMOGLOBIN 28.4 PG (27.0-34.0); MEAN CORPUSCULAR HGB CONC 32.6 % (32.0-36.0); PLATELET COUNT 186 TH/MM3 (150-450); RED BLOOD COUNT 4.06 MIL/MM3 (4.50-5.90); RED CELL DISTRIBUTION WIDTH 16.1 % (11.6-17.2); REVIEW FLAG FINAL; WHITE BLOOD COUNT 4.7 TH/MM3 (4.0-11.0)
[2017-05-08 08:21] LABS: BICARBONATE 28.7 MEQ/L (21.0-32.0); POTASSIUM 3.6 MEQ/L (3.5-5.1)
[2017-05-08] MEDS: CARVEDILOL 3.125 MG TAB PO SCH ×2 (09:00→22:20)
[2017-05-08] MEDS: BACLOFEN 20 MG TAB J-TUBE SCH ×4 (10:32→22:20)
[2017-05-08] MEDS: LORATADINE 10 MG TAB PO SCH (10:33)
[2017-05-08] MEDS: MUPIROCIN 2% OINT 1 APPLIC/GM SYR EACH NARE SCH ×2 (10:33→22:20)
[2017-05-08] MEDS: SODIUM CHLORIDE 0.9% FLUSH 10 ML FLUSH IV FLUSH SCH ×2 (10:33→22:21)
[2017-05-08] MEDS: FAMOTIDINE 20 MG TAB PO SCH ×2 (10:33→22:21)
[2017-05-08] MEDS: FUROSEMIDE 20 MG TAB PO SCH (10:33)
[2017-05-08] MEDS: APIXABAN 2.5 MG TABLET PO SCH ×2 (10:33→22:20)
[2017-05-08] MEDS: GLIMEPIRIDE 2 MG TAB PO SCH (10:34)
[2017-05-08] MEDS: POTASSIUM CHLORIDE 25 MEQ EFFERVESCENT TAB NG SCH (10:37)
--- NOTE | 2017-05-08 12:50 | HHI.FF ---
Face to Face Verification Diagnosis: (1) H/O cardiac arrest (2) PNA (pneumonia) (3) Feeding tube blocked Home Health Nursing Order: Medical education Signs/symptoms of disease process Wound care and dressing changes Nursing assessment with vital signs Black catheter maintenance I have seen patient Josiah Worley on 05/08/17. My clinical findings support the need for the requested home health care services because: Ltd mobility - disease progression Deconditioned w/ increased weakness Limited ability to care for self Need for psychosocial assistance Impaired cognition/judgement I certify that my clinical findings support that this patient is homebound because: Impaired cognitive ability/safety Unsteady gait/balance Unsafe to leave home unassisted Need for psychosocial assistance [id number] bed/chair Unable to use public transportation Poor cardiac reserve Katherine Riojas [facility] May 08, 2017 12:50
--- NOTE | 2017-05-08 12:53 | HHI.PR ---
Subjective Subjective Remarks Nonverbal History of anoxic brain injury Unable to obtain ROS no fever at bsd blood sugars elevated, D5W off tolerating tube feeding well Review of Systems Constitutional Constitutional Remarks Unable to obtain ROS Vitals/Results Intake & Output 05/07/17 05/07/17 05/08/17 15:00 23:00 07:00 Intake Total 1185 ml 840 ml Output Total 400 ml 250 ml Balance 785 ml 590 ml IV Total 585 ml 240 ml Tube Feeding 480 ml 480 ml Other 120 ml 120 ml Output Urine Total 400 ml 250 ml Vital Signs Vital Signs Date Time Temp Pulse Resp B/P Pulse Ox O2 Delivery O2 Flow Rate FiO2 05/08/17 08:00 98.0 67 18 99/56 92 05/08/17 07:35 92 21 05/08/17 04:00 98.5 98 17 120/62 94 05/08/17 00:00 99.3 106 18 132/59 94 05/07/17 20:00 98.5 81 17 117/68 92 05/07/17 16:33 98.1 82 20 118/68 93 CBC/BMP: 05/08/17 0629 05/08/17 0629 Lab Results Laboratory Tests Test 05/08/17 06:29 White Blood Count 4.7 TH/MM3 Red Blood Count 4.06 MIL/MM3 Hemoglobin 11.5 GM/DL Hematocrit 35.3 % Mean Corpuscular Volume 87.0 FL Mean Corpuscular Hemoglobin 28.4 PG Mean Corpuscular Hemoglobin 32.6 % Concent Red Cell Distribution Width 16.1 % Platelet Count 186 TH/MM3 Mean Platelet Volume 8.8 FL Sodium Level 140 MEQ/L Potassium Level 3.6 MEQ/L Chloride Level 102 MEQ/L Carbon Dioxide Level 28.7 MEQ/L Anion Gap 9 MEQ/L Blood Urea Nitrogen 14 MG/DL Creatinine 0.64 MG/DL Estimat Glomerular Filtration 130 ML/MIN Rate Random Glucose 210 MG/DL Calcium Level 8.8 MG/DL Physical Exam General General Appearance: Well Developed, No Acute Distress, Obese Ears & Nose Ears & Nose Exam: Nasal Mucosa [place] Throat Throat Exam: Oral Mucosa [place] & Moist Neck Neck Exam: Trachea Midline Pulmonary Resp Exam: Decreased Bases, Diminished Breath Sounds, Poor Inspiratory Effort Cardiology CV Exam: Regular Gastrointestinal/Abdomen GI Exam: Soft, Non-Tender, Bowel Sounds Present, Non-Distended GI Remarks Ostomy in place Suprapubic catheter GJ tube Genitourinary Remarks Suprapubic catheter Musculoskeletal MS Exam: Atrophy, Spasticity, Unable to Ambulate Integumentary Skin Exam: Warm, Dry, Intact Neurologic Neuro Remarks Anoxic brain injury, nonverbal, not following commands VTE Prophylaxis VTE Remarks Eliquis Assessment/Plan Problem List: (1) Malfunction of gastrostomy tube (2) PNA (pneumonia) (3) Diabetes 1.5, managed as type 2 (4) UTI (urinary tract infection) (5) CAD (coronary artery disease) (6) Spastic quadriplegia (7) Impaired cognition (8) Anoxic encephalopathy (9) H/O cardiac arrest (10) HX [place] Assessment/Plan Continue with antibiotics for pneumonia Duo nebs as needed Follow cultures-negative so far no fever, WBC normal. Urine culture positive for GNR and group D enterococcus Has chronic suprapubic catheter, was changed 3 days ago Multifunctional GJ tube-resolved S/P GJ tube replacement in IR 05/07 tolerating TF well Elevated blood glucose D5W dc Continue with Accu-Cheks before meals and at bedtime with insulin therapy Consult wound care nurse for pressure ulcer management-recommendations noted MRSA nasal screen + continue with Mupirocin ointment for 5 days Continue with home medications Case management for discharge planning, [facility], pt's requesting respite care. CM provided agency's number. DNR status Plan to dc in am overall improving Discussed with RN Discussed with Dr. Palmer Discussed with pt's This patient was seen by myself and Dr. Palmer, this note is written on his behalf Problem Qualifiers (1) PNA (pneumonia): Qualified Code: J18.9 - Pneumonia of both lower lobes due to infectious organism (2) UTI (urinary tract infection): Qualified Code: T83.511A - Urinary tract infection associated with indwelling urethral catheter, initial encounter (3) CAD (coronary artery disease): Qualified Code: I25.10 - Coronary artery disease involving [place] coronary artery of [place] heart without angina pectoris Katherine Riojas [facility] May 08, 2017 12:53
[2017-05-08] MEDS: AZITHROMYCIN INJ 500 MG in SODIUM CHLOR 0.9% 250 ML INJ 250 ML IV SCH (15:12)
[2017-05-08] MEDS: SCOPOLAMINE 1.5 MG PATCH T-DERMAL SCH (20:00)
[2017-05-09] VITALS: BP 123/60; PULSE 77; RESP 18; TEMP 98.3; O2SAT 96
[2017-05-09] MEDS: HEPARIN SODIUM - SQ 10,000 UNITS/ML VIAL SQ SCH (03:40)
[2017-05-09 04:00] VITALS: BP 120/57; PULSE 71; RESP 18; TEMP 96.9; O2SAT 95
[2017-05-09] MEDS: RESP: ALBUTEROL 2.5 MG/IPRATROPIUM 0.5 MG NEB (SCH) NEB ×4 (04:19→16:00)
[2017-05-09 04:25] VITALS: O2SAT 97
[2017-05-09] MEDS: INSULIN ASPART SUPPLEMENTAL SCALE SQ SCH ×2 (04:53→13:34)
[2017-05-09] MEDS: KETOROLAC TROMETHAMINE 30 MG/ML (IVP) VIAL IV PUSH PRN (04:56)
[2017-05-09] MEDS: ONDANSETRON ODT 4 MG TAB PO PRN ×2 (04:56→13:33)
[2017-05-09] MEDS: CEFEPIME INJ 1,000 MG in SODIUM CHLORIDE 0.9% INJ 100 ML IV SCH ×2 (05:03→13:33)
[2017-05-09 08:00] VITALS: BP 114/67; PULSE 81; RESP 18; TEMP 96.8; O2SAT 100
[2017-05-09] MEDS: BACLOFEN 20 MG TAB J-TUBE SCH ×2 (08:34→13:33)
[2017-05-09] MEDS: POTASSIUM CHLORIDE 25 MEQ EFFERVESCENT TAB NG SCH (08:34)
[2017-05-09] MEDS: APIXABAN 2.5 MG TABLET PO SCH (08:34)
[2017-05-09] MEDS: FAMOTIDINE 20 MG TAB PO SCH (08:34)
[2017-05-09] MEDS: GLIMEPIRIDE 2 MG TAB PO SCH (08:34)
[2017-05-09] MEDS: FUROSEMIDE 20 MG TAB PO SCH (08:34)
[2017-05-09] MEDS: LORATADINE 10 MG TAB PO SCH (08:34)
[2017-05-09] MEDS: CARVEDILOL 3.125 MG TAB PO SCH (08:34)
[2017-05-09] MEDS: MUPIROCIN 2% OINT 1 APPLIC/GM SYR EACH NARE SCH (08:35)
[2017-05-09] MEDS: SODIUM CHLORIDE 0.9% FLUSH 10 ML FLUSH IV FLUSH SCH (08:35)
--- NOTE | 2017-05-09 09:38 | HHI.PR ---
Subjective Subjective Remarks Nonverbal History of anoxic brain injury Unable to obtain ROS no fever no family at bsd Review of Systems Constitutional Constitutional Remarks Unable to obtain ROS Vitals/Results Intake & Output 05/08/17 05/08/17 05/09/17 14:59 22:59 06:59 Intake Total 1768 ml 2120 ml Output Total 725 ml Balance 1768 ml 1395 ml IV Total 345 ml 220 ml Tube Feeding 1263 ml 940 ml Other 160 ml 960 ml Output Urine Total 350 ml Stool Total 375 ml Vital Signs Vital Signs Date Time Temp Pulse Resp B/P Pulse Ox O2 Delivery O2 Flow Rate FiO2 05/09/17 08:00 96.8 81 18 114/67 100 05/09/17 04:25 97 05/09/17 04:00 96.9 71 18 120/57 95 05/09/17 00:00 98.3 77 18 123/60 96 05/08/17 23:57 95 05/08/17 20:00 97.9 62 18 135/74 95 05/08/17 17:03 97 3.00 05/08/17 16:00 98.9 77 18 119/63 95 05/08/17 12:00 98.6 68 18 118/60 95 CBC/BMP: 05/08/17 0629 05/08/17 0629 Physical Exam General General Appearance: Well Developed, No Acute Distress, Obese Ears & Nose Ears & Nose Exam: Nasal Mucosa [place] Throat Throat Exam: Oral Mucosa [place] & Moist Neck Neck Exam: Trachea Midline Pulmonary Resp Exam: Decreased Bases, Diminished Breath Sounds, Poor Inspiratory Effort Cardiology CV Exam: Regular Gastrointestinal/Abdomen GI Exam: Soft, Non-Tender, Bowel Sounds Present, Non-Distended GI Remarks Ostomy in place Suprapubic catheter GJ tube Genitourinary Remarks Suprapubic catheter Musculoskeletal MS Exam: Atrophy, Spasticity, Unable to Ambulate Integumentary Skin Exam: Warm, Dry, Intact Neurologic Neuro Remarks Anoxic brain injury, nonverbal, not following commands VTE Prophylaxis VTE Remarks Eliquis Assessment/Plan Problem List: (1) Malfunction of gastrostomy tube (2) PNA (pneumonia) (3) Diabetes 1.5, managed as type 2 (4) UTI (urinary tract infection) (5) CAD (coronary artery disease) (6) Spastic quadriplegia (7) Impaired cognition (8) Anoxic encephalopathy (9) H/O cardiac arrest (10) HX [place] Assessment/Plan Continue with antibiotics for pneumonia Duo nebs as needed Follow cultures-negative so far no fever, WBC normal. Urine culture positive for GNR and group D enterococcus Has chronic suprapubic catheter, was changed 3 days ago Multifunctional GJ tube-resolved S/P GJ tube replacement in IR 05/07 tolerating TF well Elevated blood glucose, better today D5W dc Continue with Accu-Cheks before meals and at bedtime with insulin therapy Consult wound care nurse for pressure ulcer management-recommendations noted MRSA nasal screen + continue with Mupirocin ointment for 5 days Continue with home medications Case management for discharge planning, [facility], pt's requesting respite care. CM provided agency's number. DNR status stable for dc, tolerating tube feeding, no fever dc with [facility] f/u pcp diet-tube feeding activity-bedrest Discussed with RN Discussed with Dr. Palmer This patient was seen by myself and Dr. Palmer, this note is written on his behalf Discharge Minutes: 40 Problem Qualifiers (1) PNA (pneumonia): Qualified Code: J18.9 - Pneumonia of both lower lobes due to infectious organism (2) UTI (urinary tract infection): Qualified Code: T83.511A - Urinary tract infection associated with indwelling urethral catheter, initial encounter (3) CAD (coronary artery disease): Qualified Code: I25.10 - Coronary artery disease involving [place] coronary artery of [place] heart without angina pectoris Katherine Riojas [facility] May 09, 2017 09:38
[2017-05-09] MEDS ORDERED: AUGM250S2 PO (09:42)
--- NOTE | 2017-05-09 09:43 | HHI.DS ---
Discharge Summary Admission Date May 05, 2017 at 15:26 Discharge Date: May 09, 2017 Admitting Diagnosis pneumonia, UTI, clogged GJ tube (1) Feeding tube blocked (2) PNA (pneumonia) (3) H/O cardiac arrest (4) HX GA (5) Diabetes 1.5, managed as type 2 (6) Impaired cognition (7) Spastic quadriplegia (8) UTI (urinary tract infection) (9) CAD (coronary artery disease) (10) Anoxic encephalopathy (11) Malfunction of gastrostomy tube (12) Hypokalemia Procedures GJ tube exchanged 05/08 CBC/BMP: 05/08/17 0629 05/08/17 0629 Significant Findings Laboratory Tests Test 05/07/17 05/08/17 06:00 06:29 Potassium Level 3.2 MEQ/L (3.5-5.1) Carbon Dioxide Level 32.5 MEQ/L (21.0-32.0) Creatinine 0.55 MG/DL (0.60-1.30) Random Glucose 173 MG/DL 210 MG/DL (74-106) (74-106) Red Blood Count 4.06 MIL/MM3 (4.50-5.90) Hemoglobin 11.5 GM/DL (13.0-17.0) Hematocrit 35.3 % (39.0-51.0) Imaging Last Impressions Tube Change 05/07/17 0000 Signed Impressions: Service Date/Time: Sunday, May 07, 2017 14:30 - CONCLUSION: Uncomplicated gastrojejunostomy tube exchange as above. Luis Bey Jr., MD Chest X-Ray 05/05/17 1324 Signed Impressions: Service Date/Time: Friday, May 05, 2017 13:33 - CONCLUSION: 1. Bibasilar atelectasis and/or infiltrates. 2. Cardiomegaly. 3. Poor inspiratory result. Fernando Greer MD Hospital Course This is an unfortunate 52-year-old white male who had an acute anoxic brain injury in 2011. The patient currently is being cared for per his at home. He has a G-J tube in place. The G aspect of the tube is not functioning, The J is currently still functioning. According to the record and the , she has noted cough for the past few weeks. The patient was initially treated with Cipro then placed on doxycycline, but the cough has continued. The patient did reach a high fever yesterday of 101. The states that the cough sounds wet, but he is unable to cough up any sputum. The patient's eyes are open. He does appear to be awake. It is questionable how much he understands, but he does make noises and respond to painful stimuli. To 's knowledge, the patient has had no chest pain. No other shortness of breath. He has been treated for a UTI. He has a chronic suprapubic catheter which was changed last night by her. He is followed routinely by his physicians, PCP and neurology as warranted. He has a feeding tube. He has the J-tube which usually has Glucerna at 60 mL an hour. He has multiple comorbidities. This is the second time the patient has had a pneumonia in five years since his brain injury. LABORATORY DATA WBC count 9.5, RBC 4.54, hemoglobin 13, hematocrit 39, platelet count 244, neutrophil count 70.4, lymphocyte count 11.5. Chemistry - sodium 136, potassium 3.2, chloride 96, carbon dioxide 34.7, BUN 21, creatinine 0.78, lactic acid 1.9, random glucose 162, albumin 2.8. Urine is yellow, cloudy, pH is 6. Specific gravity 1.015. Protein is 30, negative on glucose, ketones, nitrites, bilirubin is large amount of leukocyte esterase. Urobilinogen less than two, small amount of occult blood. Culture is indicated and pending along with blood cultures. He is negative on his influenza A and B. IMAGING STUDIES Chest x-ray - bibasilar atelectasis and/or infiltrates, cardiomegaly and poor respiratory effort. Pt was admitted for: 1. Pneumonia bilateral, community acquired 2. Diabetes type 2 3. G-J tube with malfunction of the G. 4. Pleural effusion right side 5. Anoxic brain injury with anoxic encephalopathy, communication impairment 6. History of spastic quadriplegia 7. History of cardiac arrest 8. Acute kidney injury with mild dehydration During the hospitalization the following took place: Patient was admitted, continued on IV antibiotics. Supplement oxygen and DuoNeb 's were ordered Home medications were reviewed, initiated as indicated He was put on D5 because he was nothing by mouth initially, tube feedings were put on hold IR was consulted to replace GJ tube CODE STATUS was discussed with in detail, she requested DO NOT RESUSCITATE with full active treatment. Patient's cultures remained normal He was afebrile, WBC remained within normal range He was found positive for UTI, gram-negative rods and group D enterococcus with sensitivities as noted S/P GJ tube replacement in IR 05/07 Tube feedings restarted, tolerated well Elevated blood glucose, due to D5. D5 was discontinued. Continue with Accu-Cheks before meals and at bedtime with insulin therapy Consult wound care nurse for pressure ulcer management-recommendations noted MRSA nasal screen + put on Mupirocin ointment for 5 days Case management consultation for discharge planning, HHC, pt's requested respite care. CM provided agency's number. stable for dc, tolerated tube feeding, no fever Discharge with home health Instructed to follow-up with PCP diet-tube feeding activity-bedrest Pt Condition on Discharge: Fair Discharge Disposition: Disch w/ Home Health Serv Discharge Instructions DIET: Follow Instructions for: On Tube Feeding Activities you can perform: Continue Bedrest Follow up Referrals: PCP Follow-up New Medications: Amoxicillin-Clavulanate Liq (Augmentin Liq) 250-62.5 Mg/5 Ml Susp 500 MG PO BID 500 mg (10 mL). Substitute the 250-62.5 mg/5 ml susp. for the 500 mg tab for adults having difficulty swallowing. Infection #200 Ref 0 ML Continued Medications: Albuterol Neb (Albuterol Neb) 2.5 Mg/0.5 Ml Neb 2.5 MG NEB Q6HR NEB Note: The Albuterol Sulfate Inhalation Solution is concentrated and must be diluted. Read complete instructions carefully before using. PRN wheezing BOX Apixaban (Eliquis) 5 Mg Tab 2.5 MG PO BID Blood Clot Prevention #60 Ref 0 TAB Ascorbic Acid (Ascorbic Acid) 500 Mg Tab 1000 MG PO BID TAB Baclofen (Baclofen) 20 Mg Tab 20 MG TUBE QID Muscle Spasm #180 Ref 2 TAB Carvedilol (Coreg) 3.125 Mg Tab 3.125 MG PO BID #60 Ref 0 TAB Cholecalciferol (Vitamin D3) 5,000 Unit Cap 5000 UNITS PO DAILY Nutritional Supplement #1 Ref 0 BOTTLE Cranberry (Vaccinium Macrocarpon) (Cranberry) 1 Powd 1 CAP DAILY Fluticasone Nasal [place] (Fluticasone Nasal [place]) 50 Mcg/Act Naspr 50 MCG EACH NARE BID 50 mcg/spray Allergy Management #1 Ref 0 BOTTLE Furosemide (Furosemide) 40 Mg Tab 60 MG PO DAILY #30 Ref 0 TAB Glimepiride (Glimepiride) 2 Mg Tab 2 MG PO DAILY Take with breakfast or first main meal Blood Sugar Management #30 Ref 0 TAB Hydralazine HCl (Hydralazine HCl) 50 Mg Tablet TID Insulin Glargine Inj (Lantus Inj) 100 Unit/Ml Inj 74 UNITS SQ BID Insulin Lispro (Human) Inj (Humalog Inj) 1,000 Unit/10 Ml Vial 5-25 UNITS SQ ACHS Max dose at bedtime:( )units; sugars < 70,(0)units; sugars 150-199,(5)units; sugars 200-249,(10)units; sugars 250-299,(15)units; sugars 300 -349,(20)units; sugars more than 349,(25)units. Blood Sugar Management #1 Ref 0 VIAL Lactobacillus Acidophilus (Probiotic) 1 Cap Cap 1 CAP PO TIDAC Nutritional Supplement #90 Ref 0 CAP Loratadine (Claritin) 10 Mg Cap 10 MG PO DAILY Allergy Management Ref 0 CAP Meclizine (Meclizine) 25 Mg Tab 25 MG PO TID PRN VERTIGO Ref 0 TAB Meclizine HCl (Meclizine 25) 25 Mg Tab TID Nystatin (Nystatin) 500,000 Unit Tab 5951018 UNITS PO Q8H Infection Ref 0 TAB Ondansetron (Zofran) 4 Mg Tab 4 MG PO Q8HR PRN NAUSEA OR VOMITING Ref 0 TAB Potassium Chloride ER (Potassium Chloride ER) 20 Meq Tab 20 MEQ PO DAILY Electrolyte Replacement #30 Ref 0 TAB Ranitidine (Zantac) 150 Mg Tab 150 MG PO BID Reduce Stomach Acid #60 Ref 0 TAB Rosuvastatin (Crestor) 40 Mg Tab 40 MG PO DAILY Cholesterol Management #30 Ref 0 TAB Scopolamine Patch 72 HR (Scopolamine Patch 72 HR) 1 Mg Patch 1 PATCH T-DERMAL Q72H #10 Ref 0 PATCH Tramadol HCl (Tramadol Hydrochloride) 50 Mg Tab 50 MG PEG prn PRN q 6hrs Katherine Riojas May 09, 2017 09:43
--- NOTE | 2017-05-09 09:43 | HHI.DCPOC ---
Discharge Care Plan Diagnosis: (1) PNA (pneumonia) (2) Feeding tube blocked Your Health Problems Are: Irregular Bowel Function Cough Goals to Promote Your Health * To prevent worsening of your condition and complications * To maintain your health at the optimal level Directions to Meet Your Goals Take your medications as prescribed Follow your dietary instruction Follow activity as directed Keep your appointments as scheduled Take your immunizations and boosters as scheduled If your symptoms worsen call your PCP, if no PCP go to Urgent Care Center or Emergency Room Smoking is Dangerous to Your Health. Avoid second hand smoke Call the 24-hour hour crisis hotline for domestic abuse at Katherine Riojas. [facility] May 09, 2017 09:43
[2017-05-09 12:00] VITALS: BP 127/57; PULSE 60; RESP 16; TEMP 97; O2SAT 96
[2017-05-09] MEDS: AZITHROMYCIN INJ 500 MG in SODIUM CHLOR 0.9% 250 ML INJ 250 ML IV SCH (13:34)
== END 2017-05-09 16:50 | disposition home health service (06) | DRG 698 ==
LOC: NEPC 12:45 → NEDA 15:26 → HOCB 17:41 → HOCA 23:15
PROVIDERS: ADMIT Internal Medicine; ATTEND Internal Medicine
PROC: 0D2DXUZ Change Feeding Device in Lower Intestinal Tract, External Approach (ICD-10-PCS; principal; 2017-05-07)
DX: T83.511A Infection and inflammatory reaction due to indwelling urethral catheter, initial encounter (principal); J18.9 Pneumonia, unspecified organism; G82.50 Quadriplegia, unspecified; G93.1 Anoxic brain damage, not elsewhere classified; J90 Pleural effusion, not elsewhere classified; I11.9 Hypertensive heart disease without heart failure; Z86.74 Personal history of sudden cardiac arrest; K94.23 Gastrostomy malfunction; N39.0 Urinary tract infection, site not specified; E11.9 Type 2 diabetes mellitus without complications; E86.0 Dehydration; E87.6 Hypokalemia; I25.10 Atherosclerotic heart disease of native coronary artery without angina pectoris; I25.2 Old myocardial infarction; E66.01 Morbid (severe) obesity due to excess calories; E78.5 Hyperlipidemia, unspecified; E11.65 Type 2 diabetes mellitus with hyperglycemia; K21.9 Gastro-esophageal reflux disease without esophagitis; D64.9 Anemia, unspecified; F41.9 Anxiety disorder, unspecified; Y84.6 Urinary catheterization as the cause of abnormal reaction of the patient, or of later complication, without mention of misadventure at the time of the procedure; Y83.3 Surgical operation with formation of external stoma as the cause of abnormal reaction of the patient, or of later complication, without mention of misadventure at the time of the procedure; Z22.322 Carrier or suspected carrier of Methicillin resistant Staphylococcus aureus; Z66 Do not resuscitate; Z68.39 Body mass index [BMI] 39.0-39.9, adult; Z79.01 Long term (current) use of anticoagulants; Z79.4 Long term (current) use of insulin; Z86.14 Personal history of Methicillin resistant Staphylococcus aureus infection; Z87.820 Personal history of traumatic brain injury; Z87.891 Personal history of nicotine dependence; Z93.3 Colostomy status; Z95.5 Presence of coronary angioplasty implant and graft
CPT/HCPCS: 49452; 71010; 76937; 80048; 80053; 81001; 82948; 83605; 85025; 85027; 87040; 87077; 87086; 87186; 87641; 87804; 94640; 94664; 96374; C1769; C1874; J0456; J0692; J1644; J1815; J1885; J3480; J7030; J7042; J7050; Q9967

== ENCOUNTER 2017-08-29 08:50 | Day surgery (SDC) | payer MEDICARE, OTHER ==
[~2017-08-29] VITALS: Ht 188 cm; Wt 133.2 kg
[~2017-08-29 08:50] MED LIST changes: +AUGM250S2 PO; +MECL-62 PO; +POTA-163 PO
[2017-08-29] MEDS ORDERED: IOHEXOL 350 MG/ML 50 ML BTL (for RAD DIAG) OTHER ONE (08:51)
[2017-08-29 09:17] VITALS: BP 114/62; PULSE 90; RESP 18; TEMP 97.4; O2SAT 96
[2017-08-29] MEDS ORDERED: SODIUM CHLORIDE 0.9% 1000 ML IV SCH (09:30)
[2017-08-29] MEDS ORDERED: CETI10CA3 (09:39)
[2017-08-29] MEDS ORDERED: INSU1.2I SQ (09:39)
[2017-08-29] MEDS ORDERED: METO2.5T PO (09:39)
[2017-08-29 10:20] VITALS: BP 99/54; PULSE 97; RESP 16; TEMP 98.8; O2SAT 98
--- NOTE | 2017-08-29 10:25 | PD.RAD ---
Post Procedure Progress Note Pre Procedure Diagnosis: (1) Feeding tube blocked Post Procedure Diagnosis: (1) Feeding tube blocked Procedure Date: Aug 29, 2017 Supervising Radiologist: Loi Ho Proceduralist/Assist: Miko Melton, RT(R), Ivan Willingham RT(R) Plan of Activity Patient to Unit: [facility] Patient Condition: Poor See PACS Report for procedural detail/treatment Feeding Tube Gastro/Jejunostomy Exchange Loi Ho MD Aug 29, 2017 10:25
== END 2017-08-29 10:50 | disposition home or self-care (01) ==
LOC: HROP 08:50 → HRIP 08:51 → HROP 10:50
PROVIDERS: ATTEND Internal Medicine Gastroenterology
DX: K94.23 Gastrostomy malfunction (principal); I48.91 Unspecified atrial fibrillation; G93.1 Anoxic brain damage, not elsewhere classified
CPT/HCPCS: 49452; C1769; Q9967